=== PATIENT | female | born 1955 | race Caucasian/White ===

== ENCOUNTER 2016-05-26 18:06 | Emergency (ER) | payer BC ==
--- NOTE | 2016-05-26 19:20 | ER NURSING DOCUMENTATION ---
Nurse's Notes [facility] Name:Radha Bishop Age:61 yrs Sex:Female :1955 Arrival Date:05/26/2016 Time:18:06 Bed1 Private MD:Reji Art Diagnosis:Hypertension Presentation: 05/26 18:13 Presenting complaint: Patient states: Was getting ready to do the health fair by rs checking her blood pressure. She checked it once this morning, and it was a little high, a little while later it was higher, and through the day it has risen to a diastolic of 120. She has never been hypertensive. Her parents have had a-fib and a stroke. She has not has any other sx today except "feel funny". No IBRAHIM, no visual changes, no CP or SOB. Transition of care: Home. 18:13 Acuity: HERON 3 rs 18:13 Method Of Arrival: Private Vehicle rs Triage Assessment: 18:18 General: Appears in no apparent distress, comfortable, well developed, well nourished, rs well groomed, Behavior is anxious, cooperative, pleasant. Pain: Denies pain. Neuro: No deficits noted. Level of Consciousness is awake, alert, Oriented to person, place, time, event. Cardiovascular: No deficits noted. Capillary refill < 3 seconds Pulses are 3+ in left radial artery. Respiratory: No deficits noted. Airway is patent Respiratory effort is even, unlabored, Respiratory pattern is regular, symmetrical. Derm: No deficits noted. Skin is pink, warm & dry. Historical: - Allergies: No known drug Allergies; - Home Meds: 1. None - PMHx: None; - PSHx: HYSTERECTOMY; - Tetanus: unknown. - Ebola Screening: : Patient negative for fever greater than or equal to 101.5 degrees Fahrenheit, and additional compatible Ebola Virus Disease symptoms. Patient denies exposure to infectious person. Patient denies travel to an Ebola-affected area in the 21 days before illness onset. No symptoms or risks identified at this time. . - Immunization history: Unable to Obtain. - Social history: Smoking status: Patient states was never smoker of tobacco. Patient uses alcohol on a daily basis. Screenin:43 Infectious Disease Risk None. Abuse screen: Denies threats or abuse. Nutritional rs screening: No deficits noted. Assessment: 18:42 See Triage Assessment done by same RN. rs Vital Signs: 18:26 BP 165 / 96 (auto/); Pulse 88; Resp 24; Pulse Ox 98% on R/A; Pain 0/10; rs 18:27 Pulse Ox 98% ; rs 19:17 BP 142 / 86; Pulse 65; Resp 18; Pulse Ox 97% on R/A; Pain 0/10; rs ED Course: 18:12 Patient arrived in ED. ds 18:12 Reji Art is Private Physician. ds 18:13 Hanna Olson, RN is Primary Nurse. rs 18:17 Triage completed. rs 18:17 John Hathaway MD is Attending Physician. sc 18:30 Notified ED Physician of patient's arrival and chief complaint. Dr. Hathaway notified. rs 18:35 Bed in low position. Call light in reach. Side rails up X 1. Adult w/ patient. Pulse Ox rs - RN Monitoring Only. Door closed. Noise minimized. Lights dimmed. Verbal reassurance given. 19:07 Reji Art is Referral Physician. wv Administered Medications: No medications were administered Outcome: 19:08 Discharge ordered by . wv 19:18 Discharged to home ambulatory. rs 19:18 Condition: improved 19:18 Discharge instructions given to patient, Instructed on discharge instructions, follow up and referral plans. Demonstrated understanding of instructions. 19:19 Patient left the ED. rs 05/27 11:28 Discharge F/U Call: Unable to reach: left voicemail: lp Signatures: Hanna Olson RN RN Jen Hernandez RN RN lp Srot, Vero, Reg Reg ds John Hathaway MD MD wv
--- NOTE | 2016-05-26 19:20 | ER PHYSICIAN DOCUMENTATION ---
Physician Documentation [facility] Name:Radha Bishop Age:61 yrs Sex:Female :1955 Arrival Date:05/26/2016 Time:18:06 Bed1 Private MD:Reji Art ED, Scott Disposition: 05/26/16 19:08 Discharged to Home/Self Care. Impression: Hypertension. - Condition is Good. - Discharge Instructions: HYPERTENSION, To Be Confirmed. - Medical Reconciliation form form. - Follow up: Reji Art; When: 06/06/2016; Reason: Recheck today's complaints. - Problem is new. - Symptoms have improved. HPI: 05/26 19:05 This 61 yrs old Female presents to ER via Private Vehicle with complaints of sc Blood Pressure Problem. 19:05 up to 160s over 100 today, recently stopped exercising due to plantar fasciitis and sc gained a little weight, thinking about health fair this weekend. Onset: The symptom(s)/episode began/occurred today. Severity of symptoms: At their worst the symptoms were very mild. Historical: - Allergies: No known drug Allergies; - Home Meds: 1. None - PMHx: None; - PSHx: HYSTERECTOMY; - Tetanus: unknown. - Ebola Screening: : Patient negative for fever greater than or equal to 101.5 degrees Fahrenheit, and additional compatible Ebola Virus Disease symptoms. Patient denies exposure to infectious person. Patient denies travel to an Ebola-affected area in the 21 days before illness onset. No symptoms or risks identified at this time. . - Immunization history: Unable to Obtain. - Social history: Smoking status: Patient states was never smoker of tobacco. Patient uses alcohol on a daily basis. ROS: 19:06 Constitutional: Negative for fever, chills, and weight loss. sc Eyes: Negative for injury, pain, redness, and discharge. ENT: Negative for injury, pain, and discharge. Neck: Negative for injury, pain, and swelling. Cardiovascular: Negative for chest pain, palpitations, and edema. Respiratory: Negative for shortness of breath, cough, wheezing, and pleuritic chest pain. Abdomen/GI: Negative for abdominal pain, nausea, vomiting, diarrhea, and constipation. Back: Negative for injury and pain. MS/Extremity: Negative for injury and deformity. Skin: Negative for injury, rash, and discoloration. 19:06 Neuro: Negative for headache, weakness, numbness, tingling, and seizure. tn Exam: Constitutional: This is a well developed, well nourished patient who is awake, alert, and in no acute distress. Head/Face: Normocephalic, atraumatic. Eyes: Pupils equal round and reactive to light, extra-ocular motions intact. Lids and lashes normal. Conjunctiva and sclera are non-icteric and not injected. Cornea within normal limits. Periorbital areas with no swelling, redness, or edema. Neck: Trachea midline, no thyromegaly or masses palpated, and no cervical lymphadenopathy. Supple, full range of motion without nuchal rigidity, or vertebral point tenderness. No meningismus. Cardiovascular: Regular rate and rhythm with a normal S1 and S2. No gallops, murmurs, or rubs. Normal PMI, no JVD. No pulse deficits. Respiratory: Lungs have equal breath sounds bilaterally, clear to auscultation and percussion. No rales, rhonchi or wheezes noted. No increased work of breathing, no retractions or nasal flaring. Back: No spinal tenderness. No costovertebral tenderness. Full range of motion. Skin: Warm, dry with normal turgor. Normal color with no rashes, no lesions, and no evidence of cellulitis. MS/ Extremity: Pulses equal, no cyanosis. Neurovascular intact. Full, normal range of motion, negative Homans's, calves equal bilaterally. 19:06 Neuro: Awake and alert, GCS 15, oriented to person, place, time, and situation. tn Cranial nerves II-XII grossly intact. Motor strength 5/5 in all extremities. Sensory grossly intact. Cerebellar exam normal. Normal gait. 19:08 Abdomen/GI: Bowel sounds: normal, Palpation: abdomen is soft and non-tender. tn 19:08 Respiratory: the patient does not display signs of respiratory distress, tn Respirations: normal, Breath sounds: are normal. Vital Signs: 18:26 BP 165 / 96 (auto/); Pulse 88; Resp 24; Pulse Ox 98% on R/A; Pain 0/10; rs 18:27 Pulse Ox 98% ; rs 19:17 BP 142 / 86; Pulse 65; Resp 18; Pulse Ox 97% on R/A; Pain 0/10; rs MDM: 18:34 Patient medically screened. tn 19:07 Differential Diagnosis high blood pressure today. Data reviewed: vital signs, nurses tn notes, old medical records, and as a result, I will discharge patient. Counseling: I had a detailed discussion with the patient and/or guardian regarding: the historical points, exam findings, and any diagnostic results supporting the discharge/admit diagnosis, the need for outpatient follow up, with the patient's primary care provider. Dispensed Medications: No medications were administered Signatures: Hanna Olson, RN RN rs John Hathaway MD MD tn
== END 2016-05-26 19:19 | disposition home or self-care (01) ==
LOC: ER 18:06
DX: I10 Essential (primary) hypertension (principal)
CPT/HCPCS: 99281